=== PATIENT | female | born 1980 | race Caucasian/White ===

== ENCOUNTER 2017-07-01 19:11 | Emergency (ER) | payer OTHER ==
--- NOTE | 2017-07-01 19:28 | PDOC ---
Rapid Medical Evaluation Medical Evaluation: Allergies Allergy/AdvReac Type Severity Reaction Status Date / Time No Known Allergies Allergy Verified 12/08/15 11:41 07/01/17 19:26 I have performed a brief in-person evaluation of this patient. The patient presents with a chief complaint of: L upper back pain w/ tight chest x 2 days, does not feel like her asthma. H/o HLD Pertinent physical exam findings: Stable w/ unremarkable exam I have ordered the following:upreg/ekg The patient will proceed to the ED for further evaluation. Discharge Disposition - Diagnosis Back pain Qualifiers: Back pain location: back pain in other location Chronicity: acute Qualified Code(s): M54.9 - Dorsalgia, unspecified - Referrals - Patient Instructions - Post Discharge Activity
[2017-07-01 19:33] VITALS: BP 125/115; PULSE 86; TEMP 98.8; BMI 34.9
--- NOTE | 2017-07-01 20:21 | PDOC ---
History of Present Illness - General History Source: Patient Exam Limitations: No Limitations - History of Present Illness Initial Comments: 07/01/17 20:37 The patient is a 36-year-old female, with a significant past medical history of hypercholesterolemia, who presents to the ED with pain under her left shoulder blade and left-sided chest discomfort that began on Thursday06/29/17. 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 Since then the patient has been experiencing discomfort and her symptoms have not gone away. She reports taking 162 mg of aspirin today which dropped her pain from a 10 to an 8. The patient admits to shortness of breath on inspiration. The patient denies taking any oral contraceptives; she is compliant with her medications. The patient denies any fever, chills, nausea, vomiting, diarrhea, or abdominal pain. Denies any dysuria, frequency, urgency, or hesitancy. Denies any recent travel. Allergies: NKA Family History: HTN and diabetes. PCP: Dr. Salena Sorto <Katharina Lousi - Last Filed: 07/01/17 21:47> - General History Source: Patient <MannyWilfredo boston - Last Filed: 07/01/17 22:04> - General Chief Complaint: Pain Stated Complaint: CHEST PAIN Time Seen by Provider: 07/01/17 19:31 Past History <Katharina Louis - Last Filed: 07/01/17 21:47> - Past Medical History Asthma: Yes Cancer: No Cardiac Disorders: No COPD: No Diabetes: No HTN: No Hypercholesterolemia: Yes Seizures: No Thyroid Disease: No - Suicide/Smoking/Psychosocial Hx Smoking History: Never smoked Have you smoked in the past 12 months: No Information on smoking cessation initiated: No Hx Alcohol Use: No Drug/Substance Use Hx: No Substance Use Type: None Hx Substance Use Treatment: No <Wilfredo Ramirez - Last Filed: 07/01/17 22:04> - Past Medical History Allergies/Adverse Reactions: Allergies Allergy/AdvReac Type Severity Reaction Status Date / Time No Known Allergies Allergy Verified 07/01/17 19:30 Home Medications: Ambulatory Orders Vit/Iron Fum/Folic AC [ Tablet] 1 each PO DAILY 12/08/15 Ibuprofen [Motrin -] 600 mg PO TID #21 tablet 12/11/15 Ibuprofen 800 mg PO TID #30 tablet 07/01/17 Methocarbamol [Robaxin -] 750 mg PO Q8H #30 tablet 07/01/17 Review of Systems - Review of Systems Able to Perform ROS?: Yes Comments:: 07/01/17 20:39 CONSTITUTIONAL: Absent: fever, chills, diaphoresis, generalized weakness, malaise, loss of appetite HEENT: Absent: rhinorrhea, nasal congestion, throat pain, throat swelling, difficulty swallowing, mouth swelling, ear pain, eye pain, visual Changes CARDIOVASCULAR: Present: left-sided chest discomfort Absent: syncope, palpitations, irregular heart rate, lightheadedness, peripheral edema RESPIRATORY: Present: shortness of breath on inspiration Absent: cough, dyspnea with exertion, orthopnea, wheezing, stridor, hemoptysis GASTROINTESTINAL: Absent: abdominal pain, abdominal distension, nausea, vomiting, diarrhea, constipation, melena, hematochezia GENITOURINARY: Absent: dysuria, frequency, urgency, hesitancy, hematuria, flank pain, genital pain MUSCULOSKELETAL: Present: pain under left shoulder pain Absent: arthralgia, joint swelling SKIN: Absent: rash, itching, pallor HEMATOLOGIC/IMMUNOLOGIC: Absent: easy bleeding, easy bruising, lymphadenopathy, frequent infections ENDOCRINE: Absent: unexplained weight gain, unexplained weight loss, heat intolerance, cold intolerance NEUROLOGIC: Absent: headache, focal weakness or paresthesias, dizziness, unsteady gait, seizure, mental status changes, bladder or bowel incontinence PSYCHIATRIC: Absent: anxiety, depression, suicidal or homicidal ideation, hallucinations. <Katharina Louis - Last Filed: 07/01/17 21:47> *Physical Exam - Vital Signs Last Vital Signs Temp Pulse Resp BP Pulse Ox 98.8 F 86 20 125/115 97 07/01/17 19:30 07/01/17 19:30 07/01/17 19:30 07/01/17 19:30 07/01/17 19:30 - Physical Exam Comments: 07/01/17 20:42 GENERAL: Well developed, well nourished. Awake and alert. No acute distress. HEENT: Normocephalic, atraumatic. PERRLA, EOMI. No conjunctival pallor. Sclera are non- icteric. Moist mucous membranes. Oropharynx is clear. NECK: Supple. Full ROM. No JVD. Carotid pulses 2+ and symmetric, without bruits. No thyromegaly. No lymphadenopathy. CARDIOVASCULAR: Regular rate and rhythm. No murmurs, rubs, or gallops. Distal pulses are 2+ and symmetric. PULMONARY: No evidence of respiratory distress. Lungs clear to auscultation bilaterally. No wheezing, rales or rhonchi. ABDOMINAL: Soft. Non-tender. Non-distended. No rebound or guarding. No organomegaly. Normoactive bowel sounds. MUSCULOSKELETAL Normal range of motion at all joints. No bony deformities or tenderness. No CVA tenderness. EXTREMITIES: No cyanosis. No clubbing. No edema. No calf tenderness. SKIN: Warm and dry. Normal capillary refill. No rashes. No jaundice. NEUROLOGICAL: Alert, awake, appropriate. PSYCHIATRIC: Cooperative. Good eye contact. Appropriate mood and affect. <Katharina Louis - Last Filed: 07/01/17 21:47> - Vital Signs Last Vital Signs Temp Pulse Resp BP Pulse Ox 98.8 F 86 20 125/115 97 07/01/17 19:30 07/01/17 19:30 07/01/17 19:30 07/01/17 19:30 07/01/17 19:30 <Wilfredo Ramirez - Last Filed: 07/01/17 22:04> Heart Score/ECG Review - ECG Intrepretation Comment:: 07/01/17 21:47 EKG was reviewed by Dr. Ramirez at 21:45. Impression: Normal sinus rhythm. Moderate voltage criteria for LVH, may be normal variant. Vent. Rate: 93 bpm NE Interval: 134 ms QTc: 452 ms <Katharina Louis - Last Filed: 07/01/17 21:47> ED Treatment Course - LABORATORY CBC & Chemistry Diagram: 07/01/17 21:18 07/01/17 21:18 <Katharina Louis - Last Filed: 07/01/17 21:47> - LABORATORY CBC & Chemistry Diagram: 07/01/17 21:18 07/01/17 21:18 <Wilfredo Ramirez - Last Filed: 07/01/17 22:04> Medical Decision Making - Medical Decision Making 07/01/17 22:01 Dr. Ramirez: The scribe's documentation has been prepared under my direction and personally reviewed by me in its entirery. I confirm that the note above accurately reflects all work, treatment, procedures, and medical decision making performed by me. all labs are normal and EKG is negative. Pt to follow-up as needed. <Wilfredo Ramirez - Last Filed: 07/01/17 22:04> *DC/Admit/Observation/Transfer - Attestations Scribe Attestion: 07/01/17 20:47 Documentation prepared by Katharina Louis, acting as biomedical scientist for Wilfredo Ramirez MD. <Katharina Louis - Last Filed: 07/01/17 21:47> - Discharge Dispostion Admit: No <Wilfredo Ramirez - Last Filed: 07/01/17 22:04> Diagnosis at time of Disposition: Back pain Qualifiers: Back pain location: back pain in other location Chronicity: acute Qualified Code(s): M54.9 - Dorsalgia, unspecified - Discharge Dispostion Disposition: HOME Condition at time of disposition: Stable - Referrals Referrals: Salena Sorto MD [Primary Care Provider] - Andrea Petersen MD [Staff Physician] - - Patient Instructions Printed Discharge Instructions: DI for Thoracic Back Pain Additional Instructions: take medication as directed. Follow up with your doctor if symptoms don't improve by Thursday. - Post Discharge Activity
[2017-07-01] MEDS ORDERED: ASPIRIN 81 MG CHEWABLE TABLETS PO ONE (20:22)
[2017-07-01] MEDS ORDERED: ASPIRIN 81 MG CHEWABLE TABLETS ONE (21:00)
[2017-07-01 21:23] LABS: BASO % 1.2 % (0-2.0); EOS % 2.1 % (0-4.5); HEMATOCRIT 40.4 % (32.4-45.2); HEMOGLOBIN 14.7 GM/dL (10.7-15.3); LYMPH % 37.1 % (8-40); MCH 31.9 pg (25.7-33.7); MCHC 36.3 g/dl (32.0-36.0); MEAN CELL VOLUME 87.8 fl (80-96); MEAN PLT VOLUME 9.7 fl (7.5-11.1); MONO % 8.5 % (3.8-10.2); NEUT % 51.1 % (42.8-82.8); PLATELET COUNT 181 K/MM3 (134-434); RDW 12.6 % (11.6-15.6); WHITE BLOOD COUNT 7.4 K/mm3 (4.0-10.0)
[2017-07-01 21:47] LABS: ALBUMIN 3.7 g/dl (3.4-5.0); ANION GAP 6 (8-16); BLOOD UREA NITROGEN 18 mg/dL (7-18); CALCIUM 8.7 mg/dL (8.5-10.1); CHLORIDE 103 mmol/L (98-107); CO2 28 mmol/L (21-32); CREATININE 1.2 mg/dL (0.55-1.02); GLUCOSE,RANDOM 91 mg/dL (74-106); SGPT/ALT 56 U/L (12-78); SODIUM 137 mmol/L (136-145)
[2017-07-01 21:51] LABS: ALK PHOS 118 U/L (45-117); BILIRUBIN,TOTAL 0.2 mg/dL (0.2-1.0); TOT PROT 7.4 g/dl (6.4-8.2)
[2017-07-01 21:52] LABS: POTASSIUM 4.2 mmol/L (3.5-5.1); SGOT/AST 30 U/L (15-37)
--- NOTE | 2017-07-02 11:40 | EKG ---
Test Reason : Blood Pressure : / mmHG Vent. Rate : 093 BPM Atrial Rate : 093 BPM P-R Int : 134 ms QRS Dur : 082 ms QT Int : 364 ms P-R-T Axes : 041 -23 036 degrees QTc Int : 452 ms NORMAL SINUS RHYTHM MODERATE VOLTAGE CRITERIA FOR LVH, MAY BE NORMAL VARIANT BORDERLINE ECG NO PREVIOUS ECGS AVAILABLE Confirmed by NIYA GRIFFITH MD ([id number]) on 07/02/2017 11:39:54 AM Referred By: Confirmed By:NIYA GRIFFITH MD
== END 2017-07-01 22:07 | disposition home or self-care (01) ==
LOC: JER 19:11
DX: M54.9 Dorsalgia, unspecified (principal); J45.909 Unspecified asthma, uncomplicated; E78.00 Pure hypercholesterolemia, unspecified
CPT/HCPCS: 36415; 80053; 82550; 84484; 85025; 85379; 93005; 93010; 99284-25

== ENCOUNTER 2018-04-24 00:16 | Emergency (ER) | payer OTHER ==
--- NOTE | 2018-04-24 00:56 | PDOC ---
History of Present Illness - General History Source: Patient Exam Limitations: No Limitations - History of Present Illness Initial Comments: 04/24/18 01:50 The patient is a 37 year old female, with a significant past medical history of hypercholesterolemia, who presents to the emergency department with, 2 days of right leg numbness and pain. She describes the pain as radiating from her thigh down to her calf as a constant, throbbing sensation. Patient endorses mild nausea and diarrhea since recently changing her oral contraceptives. She denies recent fevers, chills, headache or dizziness. She denies recent dysuria, frequency, urgency or hematuria. She denies recent chest pain or shortness of breath. Allergies: NKA Past surgical history: . Social history: Recently changed her oral contraceptives. Social EtOH. Nonsmoker. Denies recreational drug use. Primary Care Physician: Dr. Salena Sorto <Gavin King - Last Filed: 04/24/18 01:50> <Marga Hartman - Last Filed: 04/24/18 04:20> - General Stated Complaint: NUMBNESS, RT LEG Time Seen by Provider: 04/24/18 00:56 Past History <Gavin King - Last Filed: 04/24/18 01:50> - Travel Traveled outside of the country in the last 30 days: No Close contact w/someone who was outside of country & ill: No - Past Medical History Asthma: Yes Cancer: No Cardiac Disorders: No COPD: No Diabetes: No HTN: No Hypercholesterolemia: Yes Seizures: No Thyroid Disease: No - Suicide/Smoking/Psychosocial Hx Smoking History: Never smoked Have you smoked in the past 12 months: No Hx Alcohol Use: No Drug/Substance Use Hx: No Substance Use Type: None Hx Substance Use Treatment: No <Marga Hartman - Last Filed: 04/24/18 04:20> - Past Medical History Allergies/Adverse Reactions: Allergies Allergy/AdvReac Type Severity Reaction Status Date / Time No Known Allergies Allergy Verified 04/24/18 01:03 Home Medications: Ambulatory Orders NK [No Known Home Medication] 04/24/18 Review of Systems - Review of Systems Able to Perform ROS?: Yes Comments:: 04/24/18 01:50 GENERAL/CONSTITUTIONAL: No fever or chills. No weakness. HEAD, EYES, EARS, NOSE AND THROAT: No change in vision. No ear pain or discharge. No sore throat. CARDIOVASCULAR: No chest pain or shortness of breath. RESPIRATORY: No cough, wheezing, or hemoptysis. GASTROINTESTINAL: +Nausea. +Diarrhea. GENITOURINARY: No dysuria, frequency, or change in urination. MUSCULOSKELETAL: +Right leg numbness/pain. No neck or back pain. SKIN: No rash NEUROLOGIC: No headache, vertigo, loss of consciousness, or change in strength/ sensation. ENDOCRINE: No increased thirst. No abnormal weight change. HEMATOLOGIC/LYMPHATIC: No anemia, easy bleeding, or history of blood clots. ALLERGIC/IMMUNOLOGIC: No hives or skin allergy. All Other Systems: Reviewed and Negative <Gavin King - Last Filed: 04/24/18 01:50> - Review of Systems Respiratory: No: Symptoms reported, See HPI, Cough, Orthopnea, Shortness of Breath, SOB with Exertion, SOB at Rest, Stridor, Wheezing, Productive cough, Hemoptysis, Other Cardiac (ROS): No: Symptoms Reported, See HPI, Chest Pain, Edema, Irregular Heart Rate, Lightheadedness, Palpitations, Syncope, Chest Tightness, Other ABD/GI: No: Symptoms Reported, See HPI, Abdominal Distended, Abd. Pain w/ defecation, Blood Streaked Bowels, Constipated, Diarrhea, Difficulty Swallowing , Nausea, Poor Appetite, Poor Fluid Intake, Rectal Bleeding, Vomiting, Indigestion, Abdominal cramping, Tarry Stools, Other : No: Symptoms Reported, See HPI, Burning, Dysuria, Discharge, Frequency, Flank Pain, Hematuria, Incontinence, Pain, Urgency, Testicular Mass, Testicular Swelling, Lesions, Testicular Pain, Other Musculoskeletal: No: Symptoms Reported, See HPI, Back Pain, Gout, Joint Pain, Joint Swelling, Muscle Pain, Muscle Weakness, Neck Pain, Joint Stiffness, Other Integumentary: No: Symptoms Reported, See HPI, Bruising, Change in Color, Change in Hair/Nails, Dryness, Erythema, Flushing, Lesions, Lumps, Pallor, Pruritus, Rash, Sweating, Other Neurological: Yes: Numbness (in the right hamstring area), Paresthesia (in the right hamstring area), Tingling (in the right hamstring area). No: Symptoms reported, See HPI, Headache, Pre-Existing Deficit, Seizure, Tremors, Weakness, Unsteady Gait, Ataxia, Dizziness, Other Psychiatric: No: Anxiety, Depression, Frequent Crying, Stressors, Sleep Pattern Change, Emotional Problems, Mood Swings, Change in Appetite, Other Endocrine: No: Symptoms Reported, See HPI, Excessive Sweating, Flushing, Intolerance to Cold, Intolerance to Heat, Increased Hunger, Increased Thirst, Increased Urine, Unexplained Weight Gain, Unexplained Weight Loss, Change in Weight, Other Hematologic/Lymphatic: No: Symptoms Reported, See HPI, Anemia, Blood Clots, Easy Bleeding, Easy Bruising, Bleeding Diathesis, Lymph Node Abnormalities, Swollen Glands, Other <Marga Hartman - Last Filed: 04/24/18 04:20> *Physical Exam - Vital Signs Last Vital Signs Temp Pulse Resp BP Pulse Ox 98.2 F 84 18 166/116 H 99 04/24/18 00:30 04/24/18 00:30 04/24/18 00:30 04/24/18 00:30 04/24/18 00:30 <Gavin King - Last Filed: 04/24/18 01:50> - Physical Exam General Appearance: Yes: Nourished, Appropriately Dressed, Apparent Distress. No: Disheveled, Mild Distress, Moderate Distress, Severe Distress, Alcohol on Breath, Intoxicated, Cachetic, Obese, Thin, Other HEENT: positive: EOMI, JOSEPH, Normal Voice, Symmetrical, Pharynx Normal. negative: Normal ENT Inspection, TMs Normal, Pale Conjunctivae, Photophobia, Scleral Icterus (R), Scleral Icterus (L), Muffled/Hoarse voice, Pharyngeal Erythema, Tonsillar Exudate, Tonsillar Erythema, Nasal Congestion, Rhinorrhea, Sinus Tenderness, Orbits, Hearing Decreased, Hearing Grossly Normal, TM Bulging , TM Dull, TM Erythema, Lesions, Martin, Excessive drooling, Thrush, Other Neck: positive: Trachea midline, Supple. 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 intact, Fully Oriented, Alert, Normal Mood/ Affect, Normal Response, Motor Strength 5/5 <Marga Hartman - Last Filed: 04/24/18 04:20> Moderate Sedation - Procedure Monitoring Vital Signs: Procedure Monitoring Vital Signs Temperature 98.2 F 04/24/18 00:30 Pulse Rate 84 04/24/18 00:30 Respiratory Rate 18 04/24/18 00:30 Blood Pressure 166/116 H 04/24/18 00:30 O2 Sat by Pulse Oximetry (%) 99 04/24/18 00:30 <Gavin King - Last Filed: 04/24/18 01:50> ED Treatment Course - LABORATORY CBC & Chemistry Diagram: 04/24/18 01:50 04/24/18 01:50 <Marga Hartman - Last Filed: 04/24/18 04:20> Medical Decision Making - Medical Decision Making 04/24/18 01:43 BP is 134/82 at bedside now. 04/24/18 04:00 Patient Name: EARL TOBIAS THIS IS A PRELIMINARY REPORT FROM [facility] DATE OF SERVICE: 2018-04-24 01:54:10 IMAGES: 20 EXAM: Venous duplex unilateral, right lower extremity HISTORY: Rule out DVT COMPARISON: None. FINDINGS: There is no DVT in the right lower extremity. IMPRESSION: No DVT. D-dimer is normal; all labs are normal. 04/24/18 04:19 Pt has no low back pain and she has a normal straight leg test bilaterally <Marga Hartman - Last Filed: 04/24/18 04:20> *DC/Admit/Observation/Transfer - Attestations Scribe Attestion: 04/24/18 01:51 Documentation prepared by Gavin King, acting as program medical director for Marga Hartman MD. <Gavin King - Last Filed: 04/24/18 01:50> - Discharge Dispostion Decision to Admit order: No <Marga Hartman - Last Filed: 04/24/18 04:20> Diagnosis at time of Disposition: Peripheral neuropathy, Muscle spasm of right lower extremity - Discharge Dispostion Disposition: HOME Condition at time of disposition: Stable - Referrals Referrals: Salena Sorto MD [Primary Care Provider] - Erich Shell DO [Staff Physician] - - Patient Instructions Printed Discharge Instructions: DI for Peripheral Neuropathy - Post Discharge Activity
[2018-04-24 01:05] VITALS: BP 166/116; PULSE 84; TEMP 98.2; BMI 34.0
[2018-04-24] MEDS ORDERED: METHOCARBAMOL 500 MG TABLET PO ONE (01:43)
[2018-04-24] MEDS ORDERED: IBUPROFEN 600 MG TABLET (FP) PO ONE ×2 (01:43→01:58)
[2018-04-24] MEDS ORDERED: METHOCARBAMOL 500 MG TABLET ONE (01:58)
[2018-04-24 01:59] LABS: BASO % 0.6 % (0-2.0); HEMATOCRIT 39.6 % (32.4-45.2); HEMOGLOBIN 13.8 GM/dL (10.7-15.3); LYMPH % 41.7 % (8-40); MCH 30.9 pg (25.7-33.7); MCHC 34.9 g/dl (32.0-36.0); MEAN CELL VOLUME 88.5 fl (80-96); MEAN PLT VOLUME 9.9 fl (7.5-11.1); MONO % 6.5 % (3.8-10.2); NEUT % 48.2 % (42.8-82.8); PLATELET COUNT 174 K/MM3 (134-434); RBC 4.48 M/mm3 (3.60-5.2); RDW 13.1 % (11.6-15.6); WHITE BLOOD COUNT 5.4 K/mm3 (4.0-10.0)
[2018-04-24] MEDS ORDERED: AZITHROMYCIN 250 MG TABLET ONE (02:48)
[2018-04-24 02:58] LABS: ALBUMIN 3.4 g/dl (3.4-5.0); ALK PHOS 72 U/L (45-117); ANION GAP 6 MMOL/L (8-16); BILIRUBIN,TOTAL 0.3 mg/dL (0.2-1); BLOOD UREA NITROGEN 16 mg/dL (7-18); CALCIUM 8.6 mg/dL (8.5-10.1); CHLORIDE 107 mmol/L (98-107); CO2 26 mmol/L (21-32); CREATININE 0.7 mg/dL (0.55-1.3); GLUCOSE,RANDOM 95 mg/dL (74-106); POTASSIUM 4.1 mmol/L (3.5-5.1); SGOT/AST 10 U/L (15-37); SGPT/ALT 17 U/L (13-61); SODIUM 139 mmol/L (136-145); TOT PROT 7.2 g/dl (6.4-8.2)
== END 2018-04-24 04:24 | disposition home or self-care (01) ==
LOC: JER 00:16
DX: G62.89 Other specified polyneuropathies (principal); M62.838 Other muscle spasm; E78.00 Pure hypercholesterolemia, unspecified; Z86.2 Personal history of diseases of the blood and blood-forming organs and certain disorders involving the immune mechanism
CPT/HCPCS: 36415; 80053; 85025; 85379; 93971-TC; 99282-25

== ENCOUNTER 2019-11-29 12:52 | Emergency (ER) | payer OTHER ==
--- NOTE | 2019-11-29 12:59 | PDOC ---
Rapid Medical Evaluation Time Seen by Provider: 11/29/19 12:57 Medical Evaluation: Allergies Allergy/AdvReac Type Severity Reaction Status Date / Time No Known Allergies Allergy Verified 11/29/19 12:57 11/29/19 12:57 HPI: 39 year old female pmhx of asthma HLD presenting with weakness, chest tightness, dizziness, pre syncope. PE: RRR CTA A/P: labs EKG Chest XR Pt to precede to ED for further eval and treatment
[2019-11-29 13:03] VITALS: TEMP 98.7; BMI 35.3
--- NOTE | 2019-11-29 14:08 | PDOC ---
History of Present Illness - General Chief Complaint: Lightheaded Stated Complaint: WEAKNESS/LIGHTHEAD Time Seen by Provider: 11/29/19 12:57 History Source: Patient Exam Limitations: No Limitations - History of Present Illness Initial Comments: 11/29/19 14:08 39 year old female pmhx of morbid obesity, asthma, HLD presenting with 1d generalized paresthesias, weakness, and SOB. Took cough syrup w/o relief. Denies fever, headache, n/v, chest/ABD pain, urinary/bowel mvmt changes. Past History - Medical History Allergies/Adverse Reactions: Allergies Allergy/AdvReac Type Severity Reaction Status Date / Time No Known Allergies Allergy Verified 11/29/19 12:57 Home Medications: Ambulatory Orders NK [No Known Home Medication] 04/24/18 Asthma: Yes Cancer: No Cardiac Disorders: No COPD: No Diabetes: No HTN: No Hypercholesterolemia: Yes Seizures: No Thyroid Disease: No - Reproductive History Is Patient Now?: (UNKNOWN) - Immunization History Immunization Up to Date: Yes - Psycho-Social/Smoking History Smoking History: Never smoked Have you smoked in the past 12 months: No - Substance Abuse Hx (Audit-C & DAST Scrn) How often the patient has a drink containing alcohol: Never Score: In Men: 4 or > Positive; In Women: 3 or > Positive: 0 Screen Result (Pos requires Nsg. Audit-10AR): Negative In the last yr the pt used illegal drug/Rx for NonMed reason: No Score: Yes response is considered Positive: 0 Screen Result (Positive result requires Nsg. DAST-10): Negative Review of Systems - Review of Systems Constitutional: No: Chills, Fever HEENTM: No: Eye Pain, Nose Congestion Respiratory: Yes: Shortness of Breath. No: Cough, Wheezing Cardiac (ROS): No: Chest Pain, Palpitations ABD/GI: No: Abdominal Distended, Constipated, Diarrhea : No: Burning Musculoskeletal: No: Back Pain, Joint Pain Integumentary: No: Bruising, Flushing Neurological: Yes: Tingling. No: Headache, Seizure Psychiatric: No: Anxiety, Depression Endocrine: No: Intolerance to Cold, Intolerance to Heat Hematologic/Lymphatic: No: Anemia, Blood Clots *Physical Exam - Vital Signs Last Vital Signs Temp Pulse Resp BP Pulse Ox 98.7 F 91 H 20 182/112 H 98 08/25/20 12:57 11/29/19 12:57 11/29/19 12:57 11/29/19 12:57 11/29/19 12:57 - Physical Exam General Appearance: Yes: Nourished, Appropriately Dressed. No: Apparent Distress HEENT: positive: EOMI, JOSEPH, Normal Voice. negative: Scleral Icterus (R), Scleral Icterus (L) Respiratory/Chest: positive: Lungs Clear, Normal Breath Sounds. negative: Chest Tender, Respiratory Distress, Accessory Muscle Use, Labored Respiration, Rapid RR, Crackles, Rales, Rhonchi, Stridor, Wheezing Cardiovascular: positive: Regular Rhythm, Regular Rate, S1, S2. negative: Mu rmur Gastrointestinal/Abdominal: positive: Normal Bowel Sounds, Flat, Soft. negative: Tender, Organomegaly Integumentary: positive: Normal Color, Warm. 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 negative: Facial Droop, Numbness, Sensory Deficit, Confused, Disoriented ED Treatment Course - LABORATORY CBC & Chemistry Diagram: 11/29/19 13:55 11/29/19 13:55 Medical Decision Making - Medical Decision Making 11/29/19 15:53 CXR - clear lung nguyen EKG - NSR, HR 81, QTc 446, no ST changes --- 39 year old female pmhx of morbid obesity, asthma, HLD presenting with 1d generalized paresthesias, weakness, and SOB d/t anxiety. Low concern for PNA (clear XR) vs asthma (no wheezing) vs ACS (trop neg) vs PE (PERC neg) vs anemia (Hgb wnl) vs CVA (no focal neuro deficits). Also persistently hypertensive 160/100 likely d/t not being addressed or treated in past Given PO fluids DC home w referred PCP f/u for BP f/u Discharge - Discharge Information Problems reviewed: Yes Clinical Impression/Diagnosis: SOB (shortness of breath) Hypertension Qualifiers: Hypertension type: unspecified Qualified Code(s): I10 - Essential (primary) hypertension Condition: Good Disposition: HOME - Follow up/Referral Referrals: Jose David Acuña MD [Staff Physician] - - Patient Discharge Instructions Patient Printed Discharge Instructions: Essential Hypertension Additional Instructions: Your workup did not show anything concerning Drink lots of water Please follow up with the referred primary care doctor regarding your blood pressure - Post Discharge Activity
[2019-11-29 14:11] LABS: BASO % 0.5 % (0-2.0); EOS % 1.1 % (0-4.5); HEMATOCRIT 43.7 % (32.4-45.2); HEMOGLOBIN 15.2 GM/dL (10.7-15.3); LYMPH % 21.7 % (8-40); MCH 30.6 pg (25.7-33.7); MCHC 34.8 g/dl (32.0-36.0); MEAN CELL VOLUME 87.9 fl (80-96); MEAN PLT VOLUME 9.6 fl (7.5-11.1); MONO % 5.1 % (3.8-10.2); NEUT % 71.6 % (42.8-82.8); PLATELET COUNT 173 K/MM3 (134-434); RBC 4.97 M/mm3 (3.60-5.2); RDW 12.9 % (11.6-15.6); WHITE BLOOD COUNT 6.7 K/mm3 (4.0-10.0)
[2019-11-29 14:18] LABS: INR 0.94 (0.83-1.09); PROTHROMBIN TIME (PATIENT) 11.1 SEC (9.7-13.0)
[2019-11-29 14:21] LABS: ACTIVATED PTT 28.6 SECONDS (25.2-36.5)
[2019-11-29 14:52] LABS: ALK PHOS 116 U/L (45-117); ANION GAP 10 MMOL/L (8-16); BILIRUBIN,TOTAL 0.7 mg/dL (0.2-1); BLOOD UREA NITROGEN 13.8 mg/dL (7-18); CALCIUM 9.2 mg/dL (8.5-10.1); CHLORIDE 104 mmol/L (98-107); CO2 24 mmol/L (21-32); CREATININE 0.9 mg/dL (0.55-1.3); GLUCOSE,RANDOM 96 mg/dL (74-106); N-TERMINAL BNP 15.6 pg/ml (5-125); POTASSIUM 4.2 mmol/L (3.5-5.1); SGOT/AST 48 U/L (15-37); SGPT/ALT 67 U/L (13-61); SODIUM 138 mmol/L (136-145); TOT PROT 7.7 g/dl (6.4-8.2)
[2019-11-29 15:16] VITALS: PULSE 85
[2019-11-29 15:49] VITALS: BP 161/115
--- NOTE | 2019-11-29 16:36 | PDOC ---
Documentation entered by Gaudencio Roman SCRIBE, acting as scribe for Betina Saravia MD. Betina Saravia MD: This documentation has been prepared by the Antonino burch inGaudencio SCRIBE, under my direction and personally reviewed by me in its entirety. I confirm that the documentation accurately reflects all work, treatment, procedures, and medical decision making performed by me. Attending Attestation - Resident Resident Name: Rodney Rivera - ED Attending Attestation I have performed the following: I have examined & evaluated the patient, The case was reviewed & discussed with the resident, I agree w/resident's findings & plan, Exceptions are as noted - HPI HPI: 11/29/19 14:58 The patient is a 39 year old female with a significant past medical history of HLD, asthma, and obesity who presents to the emergency department for evaluation of generalized weakness, paresthesias, and shortness of breath that began two days ago. She notes taking cough syrup to no relief. Patient is concerned about her blood pressure. Reports previously high reading at an urgent care, was not started on medication, is concerned that she may need HTN meds. The patient denies abdominal/back pain, and cough. Denies fever, chills, nausea, vomiting, and/or any GI symptoms. Denies any symptoms. Denies any other symptoms. Allergies: NKA Past surgical history: . Social history: Social EtOH. Nonsmoker. Denies recreational drug use. Family History: HTN and diabetes. Primary Care Physician: Dr. Salena Sorto 11/29/19 15:57 - Physicial Exam PE: 11/29/19 14:20 GENERAL: Awake, alert, and fully oriented, in no acute distress HEAD: No signs of trauma LUNGS: Breath sounds equal, clear to auscultation bilaterally. No wheezes, and no crackles HEART: Regular rate and rhythm, normal S1 and S2, no murmurs, rubs or gallops NEUROLOGICAL: Cranial nerves II through XII grossly intact. Normal speech, normal gait SKIN: Warm, Dry, normal turgor, no rashes or lesions noted. 11/29/19 15:56 - Medical Decision Making 11/29/19 15:59 Pt presents to the ED complaining of anxiety, parathesesias and shortness of breath that have now completely resolved. Anxiety vs essential HTN. Labs checked to evaluate for Discharge - Discharge Information Problems reviewed: Yes Clinical Impression/Diagnosis: SOB (shortness of breath) Hypertension Qualifiers: Hypertension type: unspecified Qualified Code(s): I10 - Essential (primary) hypertension Condition: Good Disposition: HOME - Follow up/Referral Referrals: Jose David Acuña MD [Staff Physician] - - Patient Discharge Instructions Patient Printed Discharge Instructions: Essential Hypertension Additional Instructions: Your workup did not show anything concerning Drink lots of water Please follow up with the referred primary care doctor regarding your blood pressure - Post Discharge Activity
--- NOTE | 2019-11-30 10:23 | EKG ---
Test Reason : Blood Pressure : / mmHG Vent. Rate : 081 BPM Atrial Rate : 081 BPM P-R Int : 116 ms QRS Dur : 080 ms QT Int : 384 ms P-R-T Axes : 027 -11 018 degrees QTc Int : 446 ms NORMAL SINUS RHYTHM MODERATE VOLTAGE CRITERIA FOR LVH, MAY BE NORMAL VARIANT BORDERLINE ECG WHEN COMPARED WITH ECG OF 01-JUL-2017 21:45, NO SIGNIFICANT CHANGE WAS FOUND Confirmed by MD Raul, Robert ([id number]) on 11/30/2019 10:23:19 AM Referred By: Confirmed By:Robert Carter MD
== END 2019-11-29 16:04 | disposition home or self-care (01) ==
LOC: JER 12:52
DX: R06.02 Shortness of breath (principal); I10 Essential (primary) hypertension
CPT/HCPCS: 36415; 71045-TC-FY; 80053; 82550; 83880; 84443; 84484; 84702; 85025; 85610; 85730; 93005; 93010; 99285-25

== ENCOUNTER 2020-03-08 01:35 | Emergency (ER) | payer OTHER ==
[2020-03-08 01:53] VITALS: TEMP 98.3; BMI 35.3
[2020-03-08 02:31] LABS: BASO % 0.4 % (0-2.0); EOS % 10.8 % (0-4.5); HEMOGLOBIN 14.5 GM/dL (10.7-15.3); LYMPH % 28.9 % (8-40); MCH 31.1 pg (25.7-33.7); MCHC 35.4 g/dl (32.0-36.0); MEAN CELL VOLUME 87.9 fl (80-96); MEAN PLT VOLUME 9.4 fl (7.5-11.1); MONO % 6.9 % (3.8-10.2); PLATELET COUNT 169 K/MM3 (134-434); RBC 4.67 M/mm3 (3.60-5.2); WHITE BLOOD COUNT 9.7 K/mm3 (4.0-10.0)
[2020-03-08 02:36] LABS: INR 1.02 (0.83-1.09); PROTHROMBIN TIME (PATIENT) 12.3 SEC (9.7-13.0)
[2020-03-08 02:39] LABS: ACTIVATED PTT 27.4 SECONDS (25.2-36.5)
[2020-03-08 03:06] LABS: POTASSIUM 3.7 mmol/L (3.5-5.1)
[2020-03-08 03:09] LABS: ALBUMIN 3.8 g/dl (3.4-5.0); CALCIUM 9.6 mg/dL (8.5-10.1); GLUCOSE,RANDOM 100 mg/dL (74-106); MAGNESIUM 2.2 mg/dL (1.8-2.4)
[2020-03-08 03:12] LABS: SGOT/AST 17 U/L (15-37); SGPT/ALT 42 U/L (13-61)
[2020-03-08 03:14] LABS: BILIRUBIN,TOTAL 0.4 mg/dL (0.2-1); TOT PROT 7.2 g/dl (6.4-8.2)
[2020-03-08 03:15] LABS: ALK PHOS 112 U/L (45-117)
[2020-03-08 03:56] LABS: ANION GAP 8 MMOL/L (8-16); CHLORIDE 103 mmol/L (98-107); CO2 28 mmol/L (21-32); SODIUM 138 mmol/L (136-145)
[2020-03-08 04:20] LABS: URINE APPEARANCE CLEAR; URINE BILIRUBIN NEGATIVE (NEGATIVE); URINE COLOR YELLOW; URINE GLUCOSE (UA) NEGATIVE (NEGATIVE); URINE KETONE NEGATIVE (NEGATIVE); URINE LEUK ESTERASE NEGATIVE (NEGATIVE); URINE NITRITE NEGATIVE (NEGATIVE); URINE PROTEIN NEGATIVE (NEGATIVE); URINE UROBILINOGEN 0.2 mg/dL (0.2-1.0)
[2020-03-08 05:30] VITALS: BP 123/76; PULSE 83
== END 2020-03-08 05:45 | disposition home or self-care (01) ==
LOC: JER 01:35
DX: R07.9 Chest pain, unspecified (principal); R20.2 Paresthesia of skin
CPT/HCPCS: 36415; 71045-TC-FY; 80053; 81003; 82550; 83735; 83880; 84443; 84484; 84702; 85025; 85610; 85730; 87086; 93005; 93010; 99285-25

== ENCOUNTER 2021-03-18 03:11 | Emergency (ER) | payer OTHER ==
[2021-03-18 04:06] VITALS: TEMP 98.3; BMI 32.5
[2021-03-18 04:50] LABS: BASO % 0.7 % (0-2.0); EOS % 0.7 % (0-4.5); HEMATOCRIT 39.7 % (32.4-45.2); LYMPH % 22.2 % (8-40); MCH 30.2 pg (25.7-33.7); MCHC 35.3 g/dl (32.0-36.0); MEAN CELL VOLUME 85.6 fl (80-96); MEAN PLT VOLUME 10.1 fl (7.5-11.1); MONO % 4.9 % (3.8-10.2); NEUT % 71.5 % (42.8-82.8); PLATELET COUNT 179 10^3/uL (134-434); RBC 4.64 M/mm3 (3.60-5.2); RDW 13.1 % (11.6-15.6); WHITE BLOOD COUNT 7.4 K/mm3 (4.0-10.0)
[2021-03-18 05:05] LABS: CHLORIDE 106 mmol/L (98-107); SODIUM 139 mmol/L (136-145)
[2021-03-18 05:08] LABS: ALBUMIN 3.5 g/dl (3.4-5.0); ANION GAP 10 MMOL/L (8-16); BLOOD UREA NITROGEN 17.1 mg/dL (7-18); CO2 23 mmol/L (21-32); GLUCOSE,RANDOM 97 mg/dL (74-106)
[2021-03-18 05:11] LABS: CREATININE 0.9 mg/dL (0.55-1.3); SGOT/AST 10 U/L (15-37); SGPT/ALT 23 U/L (13-61)
[2021-03-18 05:12] LABS: BILIRUBIN,TOTAL 0.4 mg/dL (0.2-1); TOT PROT 7.4 g/dl (6.4-8.2)
[2021-03-18 05:14] LABS: ALK PHOS 105 U/L (45-117)
[2021-03-18 05:44] VITALS: BP 155/111; PULSE 80
== END 2021-03-18 05:43 | disposition home or self-care (01) ==
LOC: JER 03:11
DX: I10 Essential (primary) hypertension (principal)
CPT/HCPCS: 36415; 71046-TC-FY; 80053; 84443; 84484; 84703; 85025; 93005; 93010; 99285-25

== ENCOUNTER 2022-08-22 01:34 | Emergency (ER) | payer OTHER ==
[2022-08-22 01:50] VITALS: TEMP 98.3; BMI 37.8
[2022-08-22] MEDS ORDERED: amLODIPine BESYLATE 5 MG TABLET (FP) PO ONE (03:19)
[2022-08-22] MEDS ORDERED: amLODIPine BESYLATE 5 MG TABLET (FP) ONE (03:23)
[2022-08-22 04:00] VITALS: BP 153/103; PULSE 92; RESP 20
== END 2022-08-22 04:14 | disposition home or self-care (01) ==
LOC: JER 01:34
DX: I10 Essential (primary) hypertension (principal); R51.9 Headache, unspecified
CPT/HCPCS: 99283-25